=== PATIENT | female | born 1990 | race Caucasian/White ===

== ENCOUNTER 2019-10-06 08:23 | Outpatient (CLI) | payer OTHER, SELFPAY ==
--- NOTE | 2019-10-08 13:05 | WPDHOLTEREM ---
Holter/Event Monitor Holter/Event Monitor Date of procedure: 10/06/19 Procedure Type: 48 hour holter monitor Indications: Palpitations Conclusion: 1. 48 hour holter monitor on 10/06/19. 2. Underlying rhythm is sinus rhythm. HR range 54-138 bpm; average HR 96 bpm. 3. There are 25 premature supraventricular complexes and 3 supraventricular trigeminy. No supraventricular tachycardia. 4. There are 4 premature ventricular complexes. No ventricular tachycardia. 5. No sinoatrial or atrioventricular blocks. No significant pauses greater than 2 seconsds. 6. Patient reports symptoms of pounding beats, shortness of breath, fast beats which demonstrate sinus rhythm HR range 71-119 bpm and 2 episodes with PAC's
== END 2019-10-06 08:24 | disposition home or self-care (01) ==
PROVIDERS: Visit Provider Internal Medicine Cardiovascular Disease
DX: R00.2 Palpitations (principal)
CPT/HCPCS: 93225; 93226